=== PATIENT | male | born 1940 | race African-American/Black ===

== ENCOUNTER → 2017-01-30 | Outpatient (CLI) | payer OTHER ==
[~2017-01-30] MED LIST: ADVAIR IH; ASMANEX HFA13 G1 IH; ASPIRIN81 M2 PO; CALCIUM 600 MG1 EACH PO; DITROPAN XL5 MG PO; DOCUSATE SODIU100 MG PO; FOLIC ACID1 MG PO; GARLIC1000 MG PO; HYDROCHLOROTHIAZIDE PO; KENALOG,ARISTOC15 G2 TP; LISINOPRIL40 MG PO; NORCO 5/3251 TABLET PO; OMEPRAZOLE20 MG PO; SIMVASTATIN PO; STOOL SOFTENER100 MG PO; VITAMIN D32000 UNI1 PO
== END | disposition home or self-care (01) ==
LOC: NUC 10:49
DX: C79.51 Secondary malignant neoplasm of bone (principal); Z87.81 Personal history of (healed) traumatic fracture; R93.7 Abnormal findings on diagnostic imaging of other parts of musculoskeletal system
CPT/HCPCS: 78306; A9503

== ENCOUNTER 2017-03-24 18:48 | Observation (INO) | payer OTHER ==
[~2017-03-24] VITALS: Ht 175.3 cm; Wt 67.9 kg
[2017-03-24 20:38] LABS: HEMATOCRIT 44.2 % (38.0-50.0); MCHC 32.4 G/DL (30.0-36.0); MCV 86.7 FL (86-99); MEAN PLAT.VOLUME 9.6 uM^3 (9.0-12.4); PLATELET COUNT 160 K/uL (156-360); RBC DIS.WIDTH-CV 14.8 % (11.8-14.6); RBC DIS.WIDTH-SD 46.5 % (39-53)
[2017-03-24 20:39] LABS: CHLORIDE 100 mEq/L (99-109); POTASSIUM 3.8 mEq/L (3.7-5.4); SODIUM 136 mEq/L (136-147); WHITE BLOOD COUNT 1.2 K/uL (4.1-10.2)
[2017-03-24 20:41] LABS: GLUCOSE 107 mg/dL (70-99)
[2017-03-24 20:43] LABS: ANION GAP 9 MEQ/L (2-14); TOTAL BILIRUBIN 0.9 mg/dL (0.0-1.0)
[2017-03-24 20:45] LABS: ALKALINE PHOSPHATASE 50 IU/L (3-129); GFR ESTIMATE (CALCULATED) > 59 mL/min/
[2017-03-24 20:46] LABS: UREA NITROGEN (BUN) 16 mg/dL (9-23)
[2017-03-24 20:50] LABS: ADD MIUA? NO; BILIRUBIN NEGATIVE; BLOOD NEGATIVE; COLOR YELLOW ((YELLOW)); GLUCOSE (STRIP) NEGATIVE; KETONES NEGATIVE; LEUKOCYTES NEGATIVE; NITRITE NEGATIVE; PROTEIN (STRIP) 30; SPECIFIC GRAVITY 1.023 (1.000-1.030); UCUL ADDED? NO; UROBILINOGEN 0.2 MG/DL (0.2-1.0)
[2017-03-25 05:35] VITALS: BP 129/59
[2017-03-25 07:44] VITALS: BP 118/66
[2017-03-25] MEDS ORDERED: VIAGRA25 MG PO (08:47)
[2017-03-25] MEDS ORDERED: LISINOPRIL20 MG PO (08:47)
[2017-03-25] MEDS ORDERED: TYLENOL WITH C1 EACH PO (08:47)
[2017-03-25] MEDS ORDERED: K-DUR20 MEQ PO (08:48)
[2017-03-25] MEDS ORDERED: CALCIUM600 M1 PO (08:48)
[2017-03-25] MEDS ORDERED: NORVASC10 MG PO (08:48)
[2017-03-25] MEDS ORDERED: DECADRON4 MG PO (08:49)
[2017-03-25] MEDS ORDERED: COLACE100 MG PO (08:49)
[2017-03-25] MEDS ORDERED: VITAMIN B PO (08:50)
[2017-03-25 09:27] LABS: ANION GAP 9 MEQ/L (2-14); CHLORIDE 101 MEQ/L (99-109); GFR ESTIMATE (CALCULATED) > 59 mL/min/; GLUCOSE 103 mg/dL (70-99); POTASSIUM 3.8 MEQ/L (3.7-5.4); SAMPLE HEMOLYSIS CHECK 0; SAMPLE ICTERIC CHECK 0; SAMPLE LIPEMIA CHECK 0; SODIUM 139 MEQ/L (136-147); UREA NITROGEN (BUN) 14 mg/dL (9-23)
[2017-03-25 09:32] LABS: HEMATOCRIT 43.5 % (38.0-50.0); MCHC 33.1 G/DL (30.0-36.0); MCV 87.5 FL (86-99); RBC DIS.WIDTH-CV 15.2 % (11.8-14.6); RBC DIS.WIDTH-SD 47.6 % (39-53); RED BLOOD COUNT 4.97 M/uL (4.00-5.50); WHITE BLOOD COUNT 1.2 K/uL (4.1-10.2)
[2017-03-25 10:59] LABS: ABS NEUTROPHIL COUNT 0.6; ATYPICAL LYMPHOCYTE 10.3 %; BAND NEUTROPHILS 16.4 % (0-8.0); EOSINOPHIL ABS CT 0; EOSINOPHILS 3.5 % (0-5.0); HEMATOLOGY COMMENT 1 CLUMPED PLTS; INSTRUMENT ABS NEUTROPHIL CT 0.6 K/uL; MEAN PLAT.VOLUME 9.7 uM^3 (9.0-12.4); METAMYELOCYTES 0.9 %; NUCLEATED RBC'S 0.9; PLAT.SUFFICIENCY DECREASED; PLATELET COUNT 141 K/uL (156-360); SEG.NEUTROPHILS 35.3 % (46.0-76.0)
[2017-03-25 11:27] VITALS: BP 137/64
== END 2017-03-25 14:57 | disposition home or self-care (01) ==
LOC: EME 18:48 → EDOF 03-25 03:52 → ENRESERV 03-25 03:54 → 5WEST 03-25 05:15
PROVIDERS: Nurse Practitioner Family
DX: K52.9 Noninfective gastroenteritis and colitis, unspecified (principal); R00.0 Tachycardia, unspecified; C34.91 Malignant neoplasm of unspecified part of right bronchus or lung; Z92.21 Personal history of antineoplastic chemotherapy; Z92.3 Personal history of irradiation; I10 Essential (primary) hypertension; K21.9 Gastro-esophageal reflux disease without esophagitis; J45.909 Unspecified asthma, uncomplicated; Z79.82 Long term (current) use of aspirin; Z88.8 Allergy status to other drugs, medicaments and biological substances
CPT/HCPCS: 74177; 80048; 80053; 81003; 85025; 85027; 87040; 87493; 99281; 99285; G0378; J1956; J3010; J7030

== ENCOUNTER → 2017-09-15 | Outpatient (CLI) | payer OTHER ==
[~2017-09-15] MED LIST changes: +ADVAIR 100/501 DISK IH; +ASMANEX110 MCG IH; +ASPIR 8181 M1 PO; +B-1100 MG PO; +CALCIUM600 M1 PO; +COLACE100 MG PO; +DECADRON4 MG PO; +HYDROCHLOROTH12.5 M3 PO; +K-DUR20 MEQ PO; +LISINOPRIL20 MG PO; +MORPHINE SULFAT15 M1 PO; +NORVASC10 MG PO; +SENNA8.6 MG PO; +TYLENOL WITH C1 EACH PO; +VIAGRA25 MG PO; +VITAMIN B PO; +VITAMIN D2000 UNI1 PO
[2017-09-15 10:32] LABS: PTT 32.5 SEC (25-37)
[2017-09-15 10:42] LABS: HEMATOCRIT 43.4 % (38.0-50.0); HEMOGLOBIN 13.4 G/DL (12.5-16.6); MCH 27.4 PG (29.0-34.0); MCHC 30.9 G/DL (30.0-36.0); MCV 88.8 FL (86-99); RBC DIS.WIDTH-CV 16.6 % (11.8-14.6); RBC DIS.WIDTH-SD 52.3 % (39-53); RED BLOOD COUNT 4.89 M/uL (4.00-5.50)
== END | disposition home or self-care (01) ==
LOC: OPR 09:30 → EDSTATUS 10:00 → OPR 10:00
PROVIDERS: Internal Medicine
PROC: 0BBG3ZX Excision of Left Upper Lung Lobe, Percutaneous Approach, Diagnostic (ICD-10-PCS; principal; 2017-09-15)
DX: C34.12 Malignant neoplasm of upper lobe, left bronchus or lung (principal)
CPT/HCPCS: 71045; 77012; 85027; 85610; 85730; 88305; J3010

== ENCOUNTER 2018-01-13 15:16 | Emergency (ER) | payer OTHER ==
[~2018-01-13] VITALS: Ht 167.6 cm; Wt 52.7 kg
[2018-01-13 16:04] LABS: ALBUMIN 3.2 g/dL (3.2-4.8); CHLORIDE 102 mEq/L (99-109); SODIUM 137 mEq/L (136-147)
[2018-01-13 16:07] LABS: GLUCOSE 87 mg/dL (70-99); TOTAL PROTEIN 5.6 g/dL (6.4-8.3)
[2018-01-13 16:09] LABS: TOTAL BILIRUBIN 0.9 mg/dL (0.0-1.0)
[2018-01-13 16:10] LABS: ALKALINE PHOSPHATASE 69 IU/L (3-129); CREATININE 0.7 mg/dL (0.6-1.3); GFR ESTIMATE (CALCULATED) > 59 mL/min/ (58.99-99999)
[2018-01-13 16:11] LABS: UREA NITROGEN (BUN) 12 mg/dL (9-23)
[2018-01-13 16:12] LABS: AST (GOT) 16 IU/L (2-34)
[2018-01-13 16:13] LABS: ALT (GPT) 16 IU/L (3-49); CREATINE KINASE 22 IU/L (1-294); TOTAL CK 22 IU/L (1-294)
[2018-01-13 16:18] LABS: BASOPHIL (%) 0 % (0-1); EOSINOPHIL (%) 0 % (0-5); HEMATOCRIT 41.3 % (38.0-50.0); HEMOGLOBIN 13.6 G/DL (12.5-16.6); IMMATURE GRANULOCYTE (%) 1.1 % (0.0-0.7); LYMPHOCYTE (%) 29.9 % (15-42); LYMPHOCYTE COUNT 0.5 K/uL (1.0-2.8); MCH 27.9 PG (29.0-34.0); MCHC 32.9 G/DL (30.0-36.0); MCV 84.6 FL (86-99); MONOCYTE (%) 3.4 % (3-12); MONOCYTE COUNT 0.1 K/uL (0-0.8); NEUTROPHIL (%) 65.6 % (45-76); NEUTROPHIL COUNT 1.1 K/uL (1.8-6.4); PLATELET COUNT 150 K/uL (156-360); RBC DIS.WIDTH-CV 17.5 % (11.8-14.6); RBC DIS.WIDTH-SD 50.1 % (39-53); RED BLOOD COUNT 4.88 M/uL (4.00-5.50); WHITE BLOOD COUNT 1.7 K/uL (4.1-10.2)
[2018-01-13 16:19] LABS: CK-MB 0.6 ng/mL (0.0-4.9); CKMB RELATIVE INDEX 2.7 (0.0-3.9)
[2018-01-14 00:04] VITALS: BP 126/84
== END 2018-01-14 00:06 | disposition hospice, home (50) ==
LOC: EME 15:16
PROVIDERS: Emergency Medicine
DX: G89.3 Neoplasm related pain (acute) (chronic) (principal); C34.90 Malignant neoplasm of unspecified part of unspecified bronchus or lung; C79.51 Secondary malignant neoplasm of bone; D72.819 Decreased white blood cell count, unspecified; J44.9 Chronic obstructive pulmonary disease, unspecified; E78.5 Hyperlipidemia, unspecified; Z92.3 Personal history of irradiation; Z92.21 Personal history of antineoplastic chemotherapy; Z79.891 Long term (current) use of opiate analgesic; Z79.82 Long term (current) use of aspirin; Z87.891 Personal history of nicotine dependence
CPT/HCPCS: 80053; 82330; 82550; 82553; 85025; 99281; 99284; J1100; J1170; J3010; J7030; J7050